=== PATIENT | female | born 1955 | race Hispanic/Latino ===

== ENCOUNTER 2020-11-01 18:09 | Emergency (ER) | payer MEDICARE ==
[~2020-11-01] VITALS: Ht 152.4 cm; Wt 66.2 kg
[2020-11-01] MEDS ORDERED: EYE IRRIGATION (OPTH) 120 ML BTL OP ONE (18:15)
[2020-11-01] MEDS ORDERED: TETRACAINE HCL 0.5% OPTH SOLN 4 ML BTL OP ONE (18:15)
[2020-11-01] MEDS ORDERED: FLUORESCEIN SOD(OPTH) 1 MG STRP OP ONE (18:15)
== END 2020-11-01 18:48 | disposition home or self-care (01) ==
LOC: ER 18:20
DX: H53.142 Visual discomfort, left eye (principal); I10 Essential (primary) hypertension; E11.9 Type 2 diabetes mellitus without complications
CPT/HCPCS: 99283

== ENCOUNTER 2021-03-05 08:54 | Emergency (ER) | payer OTHER ==
[~2021-03-05] VITALS: Ht 152.4 cm; Wt 66.2 kg
== END 2021-03-05 11:15 | disposition home or self-care (01) ==
LOC: ER 09:01
DX: M25.561 Pain in right knee (principal); S80.01XA Contusion of right knee, initial encounter; S93.401A Sprain of unspecified ligament of right ankle, initial encounter; W01.0XXA Fall on same level from slipping, tripping and stumbling without subsequent striking against object, initial encounter; Y93.01 Activity, walking, marching and hiking; Y92.512 Supermarket, store or market as the place of occurrence of the external cause; I10 Essential (primary) hypertension; E11.9 Type 2 diabetes mellitus without complications
CPT/HCPCS: 99283

== ENCOUNTER 2021-09-26 05:32 | Observation (INO) | payer MEDICARE ==
[2021-09-25 08:23] LABS: BASOPHILS % 0.3 % (0.0-1.0); EOSINOPHILS # (AUTO) 0.1 (0.0-0.4); EOSINOPHILS % 1.5 % (0.0-6.0); HEMATOCRIT 39.9 % (34.2-44.1); HEMOGLOBIN 13.3 g/dL (12.0-16.0); LYMPHOCYTES # (AUTO) 1.9 (1.0-3.2); LYMPHOCYTES % 30.6 % (18.0-39.1); MEAN CORPUSCULAR HEMOGLOBIN 28.8 pg (28-32); MEAN CORPUSCULAR HGB CONC 33.3 g/dL (31-35); MEAN CORPUSCULAR VOLUME 86.4 fL (81-99); MONOCYTES # (AUTO) 0.3 (0.2-0.8); MONOCYTES % 5.5 % (4.4-11.3); NEUTROPHILS # (AUTO) 3.8 (2.1-6.9); NEUTROPHILS % 61.9 % (38.7-80.0); PLATELET COUNT 289 x10e3/uL (140-360); RED BLOOD COUNT 4.62 x10e6/uL (3.6-5.1); RED CELL DISTRIBUTION WIDTH 12.1 % (11.7-14.4)
[2021-09-25 09:00] LABS: ALBUMIN 3.8 g/dL (3.5-5.0); ALBUMIN/GLOBULIN RATIO 0.9 (0.8-2.0); ANION GAP 13.6 mmol/L (8-16); CALCIUM 9.3 mg/dL (8.4-10.2); CREATININE, SERUM 0.75 mg/dL (0.57-1.11); POTASSIUM 4.6 mmol/L (3.5-5.1)
[~2021-09-26] VITALS: Ht 152.4 cm; Wt 62.1 kg
[~2021-09-26 05:32] MED LIST: METFORMIN HCL500 MG PO
[2021-09-26] MEDS ORDERED: SODIUM CHLORIDE 0.9% 50ML 100 ML ONE (05:59)
[2021-09-26] MEDS ORDERED: MICARDIS40 MG PO (06:00)
[2021-09-26] MEDS ORDERED: ALTOPREV40 MG PO (06:00)
[2021-09-26] MEDS ORDERED: ESTROGENS CONJUGATED VAGINAL CR 45 GM TUBE PV ONE (06:37)
[2021-09-26] MEDS ORDERED: BUPIVACAINE 0.25% 30ML SDV ONE (06:38)
[2021-09-26] MEDS ORDERED: INSULIN REGULAR, HUMAN 100 UNIT/1 ML ONE (06:56)
[2021-09-26] MEDS ORDERED: BISACODYL 5 MG TAB EC PO PRN (08:00)
[2021-09-26] MEDS ORDERED: DIPHENHYDRAMINE HCL 25 MG CAP PO PRN (08:00)
[2021-09-26] MEDS ORDERED: ZOLPIDEM TARTRATE 5 MG TAB PO PRN (08:00)
[2021-09-26] MEDS ORDERED: ONDANSETRON HCL INJ 2MG/ML 2ML 2 MG/ML VIAL IV PRN (08:00)
[2021-09-26] MEDS ORDERED: DEXTROSE 50% SYRINGE 50 ML IV PRN (08:00)
[2021-09-26] MEDS ORDERED: LIDOCAINE 1% W/EPINEPHRINE 20 ML VIAL ONE ×2 (08:20→08:31)
[2021-09-26] MEDS ORDERED: FENTANYL CITRATE/PF 100MCG/2 ML INJ ONE ×2 (10:07→13:38)
[2021-09-26 10:47] VITALS: BP 120/67
[2021-09-26] MEDS: LACTATED RINGER'S 1,000 ML IV SCH ×2 (12:14→21:30)
[2021-09-26] MEDS: INSULIN REGULAR, HUMAN 100 UNIT/1 ML SQ SCH ×3 (12:14→21:00)
[2021-09-26 12:54] VITALS: BP 120/67
[2021-09-26] MEDS ORDERED: SEVOFLURANE INHAL SOLN 250 ML PEN BTL ONE (13:25)
[2021-09-26] MEDS ORDERED: NEOSTIGMINE 1 MG/ML 10ML VIAL ONE (13:25)
[2021-09-26] MEDS ORDERED: KETOROLAC TROMETHAMINE 30 MG/ML VIAL ONE (13:25)
[2021-09-26] MEDS ORDERED: ONDANSETRON HCL INJ 2MG/ML 2ML 2 MG/ML VIAL ONE (13:25)
[2021-09-26] MEDS ORDERED: PROPOFOL IV EMULSION 10 MG/ML 20 ML VIAL ONE (13:25)
[2021-09-26] MEDS ORDERED: GLYCOPYRROLATE INJ 0.2 MG/ML VIAL ONE (13:25)
[2021-09-26] MEDS ORDERED: LIDOCAINE HCL 2% LOCAL INJ 5 ML SDV VIAL INJ ONE (13:25)
[2021-09-26] MEDS ORDERED: ROCURONIUM BROMIDE 10 MG/ML 5ML VIAL IV ONE (13:25)
[2021-09-26] MEDS ORDERED: DEXAMETHASONE SOD PHOS INJ 4 MG/ML SDV ONE (13:25)
[2021-09-26] MEDS ORDERED: POVIDONE IODINE 0.05% 0.05 % ML PO ONE (13:25)
[2021-09-26] MEDS ORDERED: MIDAZOLAM HCL 2 MG/2 ML VIAL ONE (13:38)
[2021-09-26] MEDS: AMPICILLIN SOD IV SCH ×2 (14:30→21:30)
[2021-09-26] MEDS: SODIUM CHLORIDE 0.9% IV SCH ×2 (14:30→21:30)
[2021-09-26] MEDS: SULBACTAM IV SCH ×2 (14:30→21:30)
[2021-09-26 16:09] VITALS: BP 242/75
[2021-09-26] MEDS: MEPERIDINE HCL INJ 25 MG/ML VIAL IV PRN (17:15)
[2021-09-26 20:00] VITALS: BP 125/74
[2021-09-26 21:30] VITALS: BP 125/74
[2021-09-27] VITALS (7 sets, daily range): BP systolic 98–151; BP diastolic 59–81
[2021-09-27] MEDS: MEPERIDINE HCL INJ 25 MG/ML VIAL IV PRN (00:20)
[2021-09-27] MEDS: HYDROCODONE/APAP 5MG-325MG TAB PO PRN ×2 (04:31→09:06)
[2021-09-27 05:40] LABS: BASOPHILS % 0.2 % (0.0-1.0); EOSINOPHILS % 0.2 % (0.0-6.0); HEMOGLOBIN 11.4 g/dL (12.0-16.0); LYMPHOCYTES # (AUTO) 1.9 (1.0-3.2); LYMPHOCYTES % 20.9 % (18.0-39.1); MEAN CORPUSCULAR HEMOGLOBIN 28.9 pg (28-32); MEAN CORPUSCULAR HGB CONC 33.5 g/dL (31-35); MEAN CORPUSCULAR VOLUME 86.3 fL (81-99); MONOCYTES # (AUTO) 0.7 (0.2-0.8); MONOCYTES % 7.4 % (4.4-11.3); NEUTROPHILS # (AUTO) 6.5 (2.1-6.9); NEUTROPHILS % 70.9 % (38.7-80.0); PLATELET COUNT 247 x10e3/uL (140-360); RED BLOOD COUNT 3.94 x10e6/uL (3.6-5.1); RED CELL DISTRIBUTION WIDTH 12.4 % (11.7-14.4)
[2021-09-27] MEDS: AMPICILLIN SOD IV SCH (06:17)
[2021-09-27] MEDS: SULBACTAM IV SCH (06:17)
[2021-09-27] MEDS: SODIUM CHLORIDE 0.9% IV SCH (06:17)
[2021-09-27] MEDS: LACTATED RINGER'S 1,000 ML IV SCH (06:17)
[2021-09-27] MEDS: INSULIN REGULAR, HUMAN 100 UNIT/1 ML SQ SCH ×3 (07:30→16:30)
[2021-09-27] MEDS ORDERED: ONDANSETRON HCL 4 MG ORAL DISINTEGRATING TAB PO PRN (07:45)
[2021-09-27] MEDS ORDERED: TYLENOL #3 PO (15:04)
== END 2021-09-27 16:53 | disposition home or self-care (01) ==
LOC: OR 05:32 → PACU V 07:52 → MED/SURG 10:32
PROVIDERS: ADMIT Obstetrics & Gynecology; ATTEND Obstetrics & Gynecology
DX: N81.4 Uterovaginal prolapse, unspecified (principal); Z20.822 Contact with and (suspected) exposure to COVID-19; Z01.818 Encounter for other preprocedural examination; I10 Essential (primary) hypertension; E11.9 Type 2 diabetes mellitus without complications; Z79.4 Long term (current) use of insulin
CPT/HCPCS: 36415 ×3; 57265; 57282; 58262; 71046; 80053; 82948 ×2; 85025 ×2; 86850; 86900; 88307; 93005; 96372; G0378 ×2; J0295; J0690; J1100; J1817 ×2; J1885; J2001; J2175 ×2; J2250; J2405; J2704; J2710; J3010; J7121 ×2; Q0162; U0002